=== PATIENT | female | born 1935 | race Caucasian/White ===

== ENCOUNTER 2017-05-16 07:23 | Day surgery (SDC) | payer OTHER ==
[~2017-05-16] VITALS: Ht 157.5 cm; Wt 61.7 kg
--- NOTE | ~2017-05-16 | O ---
[facility] [place] [address] OPERATIVE REPORT Name: GERRY SINCLAIR Room #: 150-8 [facility]..#: [id number] Admission: 05/16/17 Attend Phys: Cipriano Dai MD Discharge: Date of : 39 Report #: [id number] THIS REPORT FOR: //name// CC: Romulo Dai DATE OF SERVICE: 05/16/2017 OPERATIONS SUPPORT COORDINATOR: None. PREOPERATIVE DIAGNOSIS: Bilateral upper lid ptosis with superior visual field defects both eyes. POSTOPERATIVE DIAGNOSIS: Bilateral upper lid ptosis with superior visual field defects both eyes. OPERATION PERFORMED: Bilateral upper lid functional ptosis repair. OPERATIONS SUPPORT COORDINATOR: None. ANESTHESIA: Local with IV sedation. COMPLICATIONS: None. INDICATIONS FOR PROCEDURE: This patient has bilateral upper lid ptosis with superior visual field loss both eyes. Visual field testing demonstrates dense superior visual defects. Retesting with the upper lid elevated shows an improvement in visual field loss of over 30% and in excess of 12 degrees. The current procedure is being undertaken in order to improve the patient's visual function. Informed consent was obtained to include but not limited to the risk of loss of vision, bleeding, infection, scarring, failure to improve the problem and need for further surgery, such as adjustment of lid height. DESCRIPTION OF PROCEDURE: The patient was taken to the operating room, where 2% Xylocaine with epinephrine mixed with equal parts of 0.75% Marcaine with Wydase was administered transcutaneously to each upper lid. The patient was then prepped and draped in the usual sterile fashion. An upper lid crease incision was then made bilaterally and the dissection was carried down until the orbital septum was identified. The orbital septum was then cleared and the preaponeurotic fat identified. The levator aponeurosis was then disinserted from the anterior surface of the tarsal plate and dissected free in the avascular Sanchez's muscle plane. The aponeurosis was then advanced [facility] [address] [place] [address] OPERATIVE REPORT Name: GERRY SINCLAIR Room #: 150-8 [facility]..#: [id number] Admission: 05/16/17 Attend Phys: Cipriano Dai MD Discharge: Date of : 39 Report #: [id number] and reattached to the anterior surface of the tarsal plate with interrupted mattress 6-0 Novafil sutures on each side, adjusting for height and contour. The redundant aponeurosis was then amputated. The incision was then closed with multiple interrupted 6-0 chromic sutures that were used to recreate an upper lid crease. The skin was closed with a running 6-0 plain gut suture. The wound was then cleaned and dressed with ophthalmic antibiotic ointment followed by a Telfa pad. The patient was transported to the recovery area, having tolerated the procedure well with no anesthesia or operative complications being noted. By: [id number] MD rogelio Walker
[~2017-05-16 07:23] MED LIST: BIOTIN5000 MCG PO; CARVEDILOL12.5 MG PO; CARVEDILOL25 MG PO; CLONIDINE0.1 PO; COZAAR 50 MG TA50 M2 PO; ELIQUIS5 MG PO; FLUOXETINE HCL40 MG PO; HYDRALAZINE 5050 MG PO; HYDRALAZINE HC100 MG PO; MAGNESIUM 300300 MG PO; PROLIA60 MG/1 ML SUBQ; VITAMIN D31000 UNIT PO; WELLBUTRIN XL300 MG PO
[2017-05-16 09:46] VITALS: BP 121/73
== END 2017-05-16 11:50 | disposition home or self-care (01) ==
LOC: OR 07:23 → TBA 07:23 → OR 11:38
DX: H02.403 Unspecified ptosis of bilateral eyelids (principal); H53.462 Homonymous bilateral field defects, left side; H53.461 Homonymous bilateral field defects, right side; I10 Essential (primary) hypertension; I48.91 Unspecified atrial fibrillation; F32.89 Other specified depressive episodes; F41.8 Other specified anxiety disorders; Z87.891 Personal history of nicotine dependence; Z95.0 Presence of cardiac pacemaker; K21.9 Gastro-esophageal reflux disease without esophagitis; M81.0 Age-related osteoporosis without current pathological fracture; Z90.710 Acquired absence of both cervix and uterus; Z79.01 Long term (current) use of anticoagulants; Z98.890 Other specified postprocedural states; Z79.899 Other long term (current) drug therapy
CPT/HCPCS: 50010; 50101; 50386; 50398; 51636; 56528; 56531; 62110; 62850; 70005

== ENCOUNTER 2018-11-13 05:34 | Day surgery (SDC) | payer OTHER ==
[~2018-11-13] VITALS: Ht 157.5 cm; Wt 60.8 kg
[~2018-11-13 05:34] MED LIST changes: +COZAAR100 MG PO; +DIGOXIN125 MCG PO; +JANTOVEN5 MG PO
[2018-11-13 08:54] LABS: APTT 29.6 Seconds (24.5-32.8); INR 1.2; PROTIME 12.9 Seconds (9.3-11.4)
[2018-11-13 09:00] VITALS: BP 134/873
--- NOTE | 2018-11-17 06:20 | O ---
[facility] [place] [address] OPERATIVE REPORT Name: GERRY SINCLAIR Room #: DEP [facility]..#: [id number] Admission: 11/13/18 ������������������ Attend Phys: Cipriano Dai MD Discharge: 11/13/18 ������������������ Date of : 39 Report #: [id number] THIS REPORT FOR: //name// CC: SOPHIE Dai SURGEON: Cipriano Dai MD SWING SAW OPERATOR: None. PREOPERATIVE DIAGNOSIS: Bilateral upper lid dermatochalasia with superior visual field defect. POSTOPERATIVE DIAGNOSIS: Bilateral upper lid dermatochalasia with superior visual field defect. OPERATION PERFORMED: Bilateral upper lid functional blepharoplasty. ANESTHESIA: Local with IV sedation. COMPLICATIONS: None. INDICATIONS FOR SURGERY: This patient has acquired upper lid dermatochalasia with superior visual field loss both eyes because of excessive upper lid tissues to include skin and fat. Visual field testing demonstrates dense superior visual defects. Retesting with the upper lid elevated shows an improvement in visual field loss of over 30% and in excess of 12 degrees. The current procedures are undertaken in order to improve the patient's visual function. Informed consent was obtained to include but not limited to the loss of vision, bleeding, infection, scarring, failure to improve the problem and need for further surgery. DESCRIPTION OF OPERATION: The patient was taken to the operating room, where 2% Xylocaine with epinephrine mixed with equal parts of 0.75% Marcaine with Wydase was administered transcutaneously to each upper lid. The patient was then prepped and draped in the usual sterile fashion and a skin-marking pen was then utilized to outline an upper lid crease that was symmetrical on each side. Graefe forceps were then used to quantitate the redundant upper lid skin and it was similarly outlined. The incisions were then made with Felipe scissors and a skin-muscle flap removed from each side with high-temp cautery. Hemostasis was achieved with the monopolar cautery as it was throughout the case. The orbital septum was then identified and the central and medial fat pads were inspected. The redundant soft tissue was then sculpted with the monopolar cautery. The upper lid crease was then reformed with tightening of the pretarsal orbicularis muscle. The upper lid crease was then further reformed [address] [address] OPERATIVE REPORT Name: KELTONJEBGERRY DOWNS Room #: DEP [facility].#: [id number] Admission: 11/13/18 ������������������ Attend Phys: Ciprinao Dai MD Discharge: 11/13/18 ������������������ Date of : 39 Report #: [id number] with multiple interrupted 6-0 chromic sutures. The skin was then closed with a running 6-0 plain gut suture. The wound was then cleaned and dressed with ophthalmic antibiotic ointment and a nonstick dressing. The patient was transported to the recovery area, where cold compresses were applied, having tolerated the procedure well with no anesthetic or operative complications being noted. ��������������������������������������������� <ELECTRONICALLY SIGNED> ���������������������������������������� By: Cipriano Dai MD ��������������������������������������������� 11/17/18 0620 [id number] Cipriano Dai MD /nt
== END 2018-11-13 11:15 | disposition home or self-care (01) ==
LOC: OR 05:34 → TBA 05:35 → OR 10:07
PROVIDERS: Ophthalmology
DX: H02.831 Dermatochalasis of right upper eyelid (principal); H02.834 Dermatochalasis of left upper eyelid; H53.462 Homonymous bilateral field defects, left side; H53.461 Homonymous bilateral field defects, right side; I11.0 Hypertensive heart disease with heart failure; I50.30 Unspecified diastolic (congestive) heart failure; I48.91 Unspecified atrial fibrillation; I25.10 Atherosclerotic heart disease of native coronary artery without angina pectoris; I25.2 Old myocardial infarction; E78.5 Hyperlipidemia, unspecified; M81.0 Age-related osteoporosis without current pathological fracture; F41.9 Anxiety disorder, unspecified; F32.9 Major depressive disorder, single episode, unspecified; Z79.899 Other long term (current) drug therapy; Z87.891 Personal history of nicotine dependence; Z95.5 Presence of coronary angioplasty implant and graft; Z90.710 Acquired absence of both cervix and uterus; Z95.0 Presence of cardiac pacemaker; Z79.01 Long term (current) use of anticoagulants; Z98.890 Other specified postprocedural states
CPT/HCPCS: 50010; 50101; 50386; 50398; 51636; 56531; 62110; 62850; 70005

== ENCOUNTER → 2018-12-03 | Outpatient (CLI) | payer OTHER | LOC: CAT 10:53 | DX: Z13.6 Encounter for screening for cardiovascular disorders (principal); I25.10 Atherosclerotic heart disease of native coronary artery without angina pectoris; E78.00 Pure hypercholesterolemia, unspecified ==